=== PATIENT | male | born 1975 | race Caucasian/White ===

== ENCOUNTER 2020-12-05 11:49 | Observation (INO) | payer OTHER ==
[2020-12-05] MEDS ORDERED: SODIUM CHLORIDE 0.9% 500 ML 500 ML IV STA (12:31)
[2020-12-05] MEDS ORDERED: DIAZEPAM 5 MG/ML 2 ML INJ IVP STA (12:33)
[2020-12-05] MEDS ORDERED: MECLIZINE 25 MG TAB PO STA (12:33)
[2020-12-05] MEDS ORDERED: METOPROLOL TARTRATE 5 MG/5 ML VIAL IVP STA ×2 (12:34→14:09)
--- NOTE | 2020-12-05 12:42 | ED ---
General Adult HPI - General Chief complaint: Dizziness Stated complaint: dizziness Time Seen by Provider: 12/05/20 12:00 Source: patient, RN notes reviewed, old records reviewed Mode of arrival: EMS Limitations: no limitations - History of Present Illness Initial comments: This is a 45-year-old male who presents emergency Department complaining that he is having quite a bit of dizziness today. Patient states she woke up and thought originally he was okay but when he went outside the whole room started to spin and he says ever since then everything was spinning so much she feels as though his fall down. Patient states he also became extremely nauseated with the spinning. Patient states this all started about 7 AM this morning. Patient denies any chest pain difficulty breathing shortness of breath. Patient states he does have a history of PVCs in the past. Patient denies any headache. Patient was worried about passing out and he doesn't think he was near syncopal but at the time he wasn't sure. Patient denied any fever chills per patient denies any loss of hearing or change in hearing patient denies any ringing in his ears. Patient denies any swelling to the legs or calf tenderness. - Related Data Allergies Allergy/AdvReac Type Severity Reaction Status Date / Time doxycycline Allergy Unknown Verified 12/05/20 14:42 Review of Systems ROS Statement: Those systems with pertinent positive or pertinent negative responses have been documented in the HPI. ROS Other: All systems not noted in ROS Statement are negative. Past Medical History Past Medical History: Hypertension Additional Past Medical History / Comment(s): MS History of Any Multi-Drug Resistant Organisms: None Reported Past Surgical History: Cholecystectomy Additional Past Surgical History / Comment(s): wisdom teeth Past Psychological History: No Psychological Hx Reported Smoking Status: Current every day smoker Past Alcohol Use History: Occasional Past Drug Use History: None Reported General Exam - General Exam Comments Initial Comments: GENERAL: Patient is well-developed and well-nourished. Patient is nontoxic and well- hydrated and is in distress. ENT: Neck is soft and supple. No significant lymphadenopathy is noted. Oropharynx is clear. Moist mucous membranes. Neck has full range of motion without eliciting any pain. EYES: The sclera were anicteric and conjunctiva were pink and moist. Extraocular movements were intact and pupils were equal round and reactive to light. Eyelids were unremarkable. PULMONARY: Unlabored respirations. Good breath sounds bilaterally. No audible rales rhonchi or wheezing was noted. CARDIOVASCULAR: There is a regular rate and rhythm without any murmurs gallops or rubs. ABDOMEN: Soft and nontender with normal bowel sounds. SKIN: Skin is clear with no lesions or rashes and otherwise unremarkable. NEUROLOGIC: Patient is alert and oriented x3. Cranial nerves II through XII are grossly intact. Motor and sensory are also intact. Normal speech, volume and content. Symmetrical smile. Nose testing was normal bilaterally MUSCULOSKELETAL: Normal extremities with adequate strength and full range of motion. No lower extremity swelling or edema. No calf tenderness. LYMPHATICS: No significant lymphadenopathy is noted PSYCHIATRIC: Normal psychiatric evaluation. Limitations: no limitations Course Vital Signs 12/05/20 12/05/20 12/05/20 11:52 12:29 13:00 Temperature 98.1 F Pulse Rate 70 64 Respiratory 18 18 Rate Blood Pressure 179/94 146/108 113/97 O2 Sat by Pulse 96 96 Oximetry 12/05/20 14:22 Temperature Pulse Rate 68 Respiratory 16 Rate Blood Pressure 147/96 O2 Sat by Pulse 97 Oximetry Medical Decision Making - Medical Decision Making EKG shows sinus rhythm with frequent PVCs at 85 bpm TX interval 280 QRSs 88 QT interval 360 QTC is 437. Patient's EKG shows no ST segment elevation or depression. CT showed a hypoattenuating she in the betty symmetrical. Patient has no old fi lm to compare to. Patient chest x-ray showed no acute abnormality. Patient also was throwing multiple PVCs and had runs of up to 3 and 4 time sometimes multiple runs 3 and 4 in a 10 second time frame. Patient received metoprolol 2 IV for the PVCs and the blood pressure. I spoke with Dr. Vazquez agreed to admit the patient admitted the patient remaining orders. I consult cardiology and neurology - Lab Data Result diagrams: 12/05/20 12:00 12/05/20 12:00 Lab Results 12/05/20 12/05/20 12/05/20 Range/Units 12:00 12:00 12:00 WBC 6.3 (3.8-10.6) k/uL RBC 5.32 (4.30-5.90) m/uL Hgb 17.3 (13.0-17.5) gm/dL Hct 49.4 (39.0-53.0) % MCV 92.9 (80.0-100.0) fL MCH 32.4 (25.0-35.0) pg MCHC 34.9 (31.0-37.0) g/dL RDW 14.1 (11.5-15.5) % Plt Count 203 (150-450) k/uL MPV 7.7 Neutrophils % 69 % Lymphocytes % 16 % Monocytes % 7 % Eosinophils % 4 % Basophils % 1 % Neutrophils # 4.3 (1.3-7.7) k/uL Lymphocytes # 1.0 (1.0-4.8) k/uL Monocytes # 0.4 (0-1.0) k/uL Eosinophils # 0.3 (0-0.7) k/uL Basophils # 0.0 (0-0.2) k/uL Sodium 138 (137-145) mmol/L Potassium 4.2 (3.5-5.1) mmol/L Chloride 103 (98-107) mmol/L Carbon Dioxide 26 (22-30) mmol/L Anion Gap 9 mmol/L BUN 11 (9-20) mg/dL Creatinine 0.92 (0.66-1.25) mg/dL Est GFR (CKD-EPI)AfAm >90 (>60 ml/min/1.73 sqM) Est GFR (CKD-EPI)NonAf >90 (>60 ml/min/1.73 sqM) Glucose 122 H (74-99) mg/dL Calcium 9.4 (8.4-10.2) mg/dL Magnesium 2.1 (1.6-2.3) mg/dL Total Bilirubin 0.6 (0.2-1.3) mg/dL AST 69 H (17-59) U/L ALT 63 H (4-49) U/L Alkaline Phosphatase 74 (38-126) U/L Troponin I <0.012 (0.000-0.034) ng/mL Total Protein 7.1 (6.3-8.2) g/dL Albumin 4.5 (3.5-5.0) g/dL Disposition Clinical Impression: Vertigo, Lesion of betty, Frequent PVCs Disposition: ADMITTED IP TO THIS [facility] Referrals: Nonstaff,Physician [Primary Care Provider] - 1-2 days Time of Disposition: 14:44
--- NOTE | 2020-12-05 12:53 | XR ---
EXAMINATION TYPE: XR chest 2V DATE OF EXAM: 12/05/2020 COMPARISON: NONE HISTORY: Chest pain TECHNIQUE: Frontal and lateral views of the chest are obtained. FINDINGS: There is no focal air space opacity, pleural effusion, or pneumothorax seen. The cardiac silhouette size is within normal limits. Patient is rotated, there are overlying leads. The osseous structures are intact. IMPRESSION: No acute cardiopulmonary process.
[2020-12-05 13:02] LABS: Basophils % (A) 1 %; Eosinophils # (A) 0.3 k/uL (0-0.7); Eosinophils % (A) 4 %; HCT 49.4 % (39.0-53.0); HGB 17.3 gm/dL (13.0-17.5); Lymphocytes % (A) 16 %; MCH 32.4 pg (25.0-35.0); MCHC 34.9 g/dL (31.0-37.0); MCV 92.9 fL (80.0-100.0); Mean Platelet Volume 7.7; Monocytes # (A) 0.4 k/uL (0-1.0); Monocytes % (A) 7 %; Neutrophils # (A) 4.3 k/uL (1.3-7.7); Neutrophils % (A) 69 %; Platelet Count 203 k/uL (150-450); RBC 5.32 m/uL (4.30-5.90); RDW 14.1 % (11.5-15.5); WBC 6.3 k/uL (3.8-10.6)
--- NOTE | 2020-12-05 13:06 | CT ---
EXAMINATION TYPE: CT brain wo con DATE OF EXAM: 12/05/2020 COMPARISON: None HISTORY: dizziness CT DLP: 1143.4 mGycm. Automated Exposure Control for Dose Reduction was Utilized. TECHNIQUE: CT scan of the head is performed without contrast. FINDINGS: There is no acute intracranial hemorrhage, mass effect, or midline shift identified. The ventricles and sulci are within normal limits in size. There is some focal low attenuation present w ithin the betty, axial image #15 noted within the midline. The globes are intact and the visualized si nuses are remarkable for minimal inflammatory change maxillary sinus on the right. 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 IMPRESSION: Indeterminate focus of hypoattenuation within the midline in the betty. MRI is recommended .
[2020-12-05 13:14] LABS: ALT 63 U/L (4-49); AST 69 U/L (17-59); African American GFR (CKD) >90 (>60 ml/min/1.73 sqM); Albumin 4.5 g/dL (3.5-5.0); Alkaline Phosphatase 74 U/L (38-126); Anion Gap 9 mmol/L; Blood Urea Nitrogen 11 mg/dL (9-20); Calcium 9.4 mg/dL (8.4-10.2); Carbon Dioxide 26 mmol/L (22-30); Chloride 103 mmol/L (98-107); Glucose 122 mg/dL (74-99); Magnesium 2.1 mg/dL (1.6-2.3); Non-African American GFR(CKD) >90 (>60 ml/min/1.73 sqM); Potassium 4.2 mmol/L (3.5-5.1); Sodium 138 mmol/L (137-145); Total Bilirubin 0.6 mg/dL (0.2-1.3); Total Protein 7.1 g/dL (6.3-8.2)
[2020-12-05] MEDS ORDERED: SODIUM CHLORIDE 0.9% 1,000 ML IV ONE (14:45)
--- NOTE | 2020-12-05 16:23 | P.CNNES ---
History of Present Illness Consult date: 12/05/20 Requesting physician: Gianluca Galloway Reason for Consult: lesion betty, vertigo History of Present Illness: This is a 45-year-old gentleman with medical history of relapsing remitting multiple sclerosis since 2018, hypertension who presented to the emergency department on 12/05/2020 for the severe dizziness. He is accompanied with his was at bedside. The patient stated that the he woke up around 6ish in the morning and was doing well then around 7:00 he noticed that there he was very dizzy and he felt like the room was spinning. He had nausea. He said that he was having double vision and it was side to side but he cannot tell me if was the right eye left eye he thinks his both eyes. He said when he sat down he felt the dizziness got better but when he was moving dizziness got really bad ear. He denies any vomiting. Patient denies any ringing in the ears, hearing loss. He said initially when he was HIS there is a slight lag in getting his words out but otherwise denies any focal weakness that's new or numbness or difficulty swallowing. Denies any fever. He said that currently he feels much better compared to his initial presentation and his agrees with that. He said he is around this area for leisure. Patient follows up with a neurologist in [place] when he lives (Dr. Toya hicks) and is getting IV infusion of Ocrevus every 6 months and last one was in Mar 2021 and was due in October for next one but pending insurance authorization. Regarding his MS he was never started on any other medication besides Ocrevus. He has minimal to mild right paresthesia of the right lower extremity from right thigh down and right leg weakness from MS and gets outpatient therapy. Patient's home medication consists of vitamin D3, pseudoephedrine, potassium, vitamin D, CoQ10, Cialis, loratadine, Lexapro, potassium, Ocrevus inusion Some of the workup in the hospital consisted of: Initial vital signs: Blood pressure of 179/94, heart rate of 70, respiratory of 18, temperature of 98.1 Fahrenheit oral and pulse ox of 96% room air. CBC with differential is within normal limits. Chemistry panel is apparent positive his AST of 69 and ALT of 63 which is mildly elevated. We'll close is 122 which is slightly elevated but unremarkable. Otherwise the rest of the chemistry panel is unremarkable. Calcium is 9.4, magnesium is 2.1 which is within normal limits. CT of the head is reported as a different focus of hypoattenuation within the midline in the betty. MRI is recommended. EKG is reported as sinus rhythm with frequent and the consecutive premature ventricular comp looks his appeared abnormal EKG. Review of Systems Review of system: The 12 point system was reviewed and apparent positive and negative per HPI. Past Medical History Past Medical History: Hypertension Additional Past Medical History / Comment(s): MS History of Any Multi-Drug Resistant Organisms: None Reported Past Surgical History: Cholecystectomy Additional Past Surgical History / Comment(s): wisdom teeth Past Psychological History: No Psychological Hx Reported Smoking Status: Current every day smoker Past Alcohol Use History: Occasional Past Drug Use History: None Reported Medications and Allergies Home Medications Medication Instructions Recorded Confirmed Type Ascorbic Acid [Vitamin C] 1,000 mg PO DAILY 12/05/20 12/05/20 History Cholecalciferol [Vitamin D3 (25 50 mcg PO DAILY 12/05/20 12/05/20 History Mcg = 1000 Iu)] Escitalopram [Lexapro] 10 mg PO DAILY 12/05/20 12/05/20 History Loratadine 10 mg PO DAILY 12/05/20 12/05/20 History Losartan/Hydrochlorothiazide 1 tab PO DAILY 12/05/20 12/05/20 History [Losartan-Hctz 100-12.5 mg Tab] Ocrevus Infusion(Unknown Dose) 1 dose IV Q180D 12/05/20 12/05/20 History Potassium Gluconate 99 mg PO DAILY 12/05/20 12/05/20 History Pseudoephedrine [Sudafed] 30 mg PO Q4-6H PRN 12/05/20 12/05/20 History Tadalafil [Cialis] 5 mg PO DAILY 12/05/20 12/05/20 History Ubidecarenone [Co Q-10] 100 mg PO DAILY 12/05/20 12/05/20 History Vitamin B Complex 1 cap PO DAILY 12/05/20 12/05/20 History Allergies Allergy/AdvReac Type Severity Reaction Status Date / Time doxycycline Allergy Unknown Verified 12/05/20 14:42 Physical Examination - Vital Signs Vital Signs: Vital Signs Temp Pulse Resp BP Pulse Ox 12/05/20 14:22 68 16 147/96 97 12/05/20 13:00 113/97 12/05/20 12:29 64 18 146/108 96 12/05/20 11:52 98.1 F 70 18 179/94 96 Intake and Output 12/05/20 12/05/20 12/05/20 06:59 14:59 22:59 Other: Weight 106.594 kg GENERAL: The patient is obese gentleman sitting up at side of bed in bed and is not in acute distress. CHEST: The heart rate is regular rate rhythm. No murmurs to auscultation. No carotid bruit bilaterally. LUNG: Clear to auscultation bilaterally no wheezing noted throughout. Not labored breathing. ABDOMEN/GI: Bowel sounds present in all 4 quadrants. No tenderness to palpation throughout. NEUROLOGICAL: Higher mental function: The patient is awake, alert, oriented to self, place and time. Patient is following commands. No aphasia and no neglect. Cranial nerves: The pupils are round, equal and reactive to light and accommodation. Visual eisenberg are full to confrontation throughout. Extraocular movement is intact and mild rotatory nystagmus noted looking to left. Facial sensation is normal to touch throughout. The facial strength is normal throughout. Hearing is normal bilaterally to hand rub. Tongue is midline and moved tywe-by-zylp without any difficulty. No dysarthria is noted. Shoulder shrug is normal bilaterally. Motor: Gait is normal with normal arm swings. The strength is 5 over 5 throughout. Normal tone and bulk. Cerebellum: Normal finger to nose heel to sharp bilaterally. Sensation: Sensation is normal to touch throughout. Reflexes (right/left): 2+ throughout except patellar 3+ bilaterally.. Plantars are downgoing bilaterally. Results - Laboratory Findings CBC and BMP: 12/05/20 12:00 12/05/20 12:00 Abnormal Lab Findings: Abnormal Labs 12/05/20 12:00 Glucose 122 H AST 69 H ALT 63 H Assessment and Plan Assessment: * Vertigo, diplopia (side to side), and difficulty getting his words out---symptoms are improving. Seems possibly acute ischemic stroke. Another possibility is his vertigo seems peripheral (where it is positional) and currently his symptoms are improving. * History of relapsing-remitting multiple sclerosis since 2018. * Hypertension Plan: I ordered a stat CT angiography of the head and neck as well as stat MRI of the brain (w/o gadollinum since he will be getting too much contrast today and if needed will get contrast another day). Patient was given Valium, meclizine in the ED. I will start the patient on ASA 81mg daily and Lipitor 80mg qhs for secondary stroke prophylaxis if MRI is suggestive of stroke. I will also get rest of stroke work-up if he does have stroke seen on MRI (2D echo, lipid panel, TSH and HbA1c). Placed on continuous cardiac monitoring Q4 hours Neuro checks and placed on continous cardiac monitoring. I consulted that PT OT and [employer]. Cardiology is consulted for PVC. Upon discharge the patient needs to follow-up with his neurologist as outpatient within 1-2 weeks. Thank you for the consultation. UPDATE: MR the brain is reported as no evidence of acute infarct. Scattered white mat ter high signal foci as above could relate to demyelinating disease or microvascular ischemia. Zach Matthews M.D. Neuro-hospitalist Time with Patient: Greater than 30
[2020-12-05] MEDS ORDERED: PSEUDOEPHEDRINE 30 MG TAB PO PRN (18:21)
--- NOTE | 2020-12-05 18:56 | MR ---
EXAMINATION TYPE: MR brain wo con DATE OF EXAM: 12/05/2020 COMPARISON: None HISTORY: stroke/ dizziness/ r/o peripheral stroke Multiplanar multiecho imaging of the brain without contrast. Diffusion images show no evidence of an acute infarct. The ventricles have normal size. There is no m ass effect nor midline shift. There is no sign of intracranial hemorrhage. The brainstem is intact. T here is no evidence of posterior fossa mass. There are some foci of increased signal on the T2 and FL AIR images in the white matter in the right posterior temporal lobe and the left temporal and parieta l lobe. Total number of lesions is approximately 15. Most of these are 4 mm or smaller. The largest i s adjacent to the temporal horn of the right lateral ventricle and measures 7 mm. Corpus callosum appears intact. The sella turcica is intact. There is no evidence of orbital mass. Th ere is mild mucosal thickening in the ethmoid air cells. IMPRESSION: No evidence of an acute infarct. Scattered white matter high signal foci as above could relate to demyelinating disease or microvascul ar ischemia.
--- NOTE | 2020-12-05 20:04 | CT ---
EXAMINATION TYPE: CT angio head neck DATE OF EXAM: 12/05/2020 COMPARISON: None HISTORY: DIZZINESS CT DLP: 505.80 mGycm Automated exposure control for dose reduction was used. CONTRAST: Performed with IV Contrast, patient injected with 65 mL of Isovue 370. Images obtained from the aortic arch to the vertex of the brain with IV contrast. There are 3-D post processed images. There is arterial flow in the subclavian arteries bilaterally. There is arterial flow in the common i nternal and external carotid arteries bilaterally. There is wide patency of the carotid artery bifurc ations. There is arterial flow in both vertebral arteries. There is arterial flow in the vertebrobasi lar artery system. There is no evidence of carotid or vertebral artery aneurysm or dissection. There is normal branching pattern of the great vessels on the aortic arch. There is arterial flow in the anterior middle and posterior cerebral arteries. I see no evidence of i ntracranial aneurysm or neovascularity. There is no evidence of any significant arterial stenosis. Th ere is no mass effect. There is normal enhancement of the venous sinuses. IMPRESSION: Negative CT angiogram of the neck. Negative CT angiogram of the brain.
--- NOTE | 2020-12-06 00:22 | HP ---
HISTORY AND PHYSICAL 45-year-old white male with MS since 2018, hypertension, came in with severe dizziness with blurred vision, double vision, suspicious for possible MS flare. He has missed his regular MS infusion. Two months late after he was supposed to get infusion, he thought the room was possibly spinning. Says this got better. He denies any vomiting and ringing in his ears, hearing loss. 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 Follows with a neurologist in [place]. IV Ocrevus every 6 months. MEDICATIONS: Home medicines include pseudoephedrine, vitamin D3, potassium, ( ) Cialis, Lexapro, potassium, Ocrevus. PHYSICAL EXAMINATION: Blood pressure is 179/94, heart rate 70, respiratory 16-18, temperature 98.1, O2 96, room air. CARDIOVASCULAR: S1,S2. LUNGS: Clear. GI: Soft. HEMATOLOGY: Negative Homans. PSYCH: Fair mood and affect. LABS: Magnesium is 2.1, calcium 9.4. CT head, abnormality of the betty. MRI shows possibly multiple white lesions for an MS flare. PAST MEDICAL HISTORY: Hypertension, MS. SOCIAL HISTORY: Current everyday smoker. ALLERGIES: DOXYCYCLINE. PHYSICAL EXAM: Pulse 60s to 70s, respiratory 16 to 18, blood pressure is 113 to 170s over 90s to 100. Pulse ox 96-98%., Temp 98.1. LABS: White count 6.3, hemoglobin 17.3, BUN 11, creatinine 0.92, sodium 138, potassium 4.2. ASSESSMENT: Vertigo, diplopia, most likely acute MS flare, possibly acute ischemic stroke. MRI of the brain is reviewed. Wait for Neurology to start possible steroids for MS. Rehydrate. Prognosis is guarded. MMODL / IJN: [id number] /
[2020-12-06] MEDS: CHOLECALCIFEROL 25 MCG (1000 IU) TABLET PO SCH (08:51)
[2020-12-06] MEDS: ESCITALOPRAM 10 MG TAB PO SCH (08:52)
[2020-12-06] MEDS: ASCORBIC ACID 500 MG TAB PO SCH (08:52)
[2020-12-06] MEDS: LOSARTAN 50 MG TAB PO SCH (08:52)
[2020-12-06] MEDS: LORATADINE 10 MG TAB PO SCH (08:52)
[2020-12-06] MEDS: NON FORMULARY DRUG (Ubidecarenone [Co Q-10] 100 MG Capsule) PO SCH (08:54)
[2020-12-06] MEDS: NON FORMULARY DRUG (Vitamin B Complex [Vitamin B Complex] 1 EACH Capsule) PO SCH (08:54)
[2020-12-06] MEDS ORDERED: hydroCHLOROthiazide 12.5 MG CAP PO SCH (09:00)
[2020-12-06] MEDS ORDERED: MECLIZINE 25 MG TAB PO PRN (09:19)
[2020-12-06] MEDS ORDERED: DIAZEPAM 5 MG/ML 2 ML INJ IVP STA (09:24)
--- NOTE | 2020-12-06 11:07 | P.CRDCN ---
History of Present Illness Consult date: 12/06/20 History of present illness: HISTORY OF PRESENT ILLNESS: This is a 45-year-old male with a past medical history significant for multiple sclerosis, hypertension, PVCs, and nicotine dependence. Patient does not follow with a entry level accounting clerk. We have been asked to see the patient in consultation for PVCs. Patient examined at the bedside. Patient states he woke up yesterday morning and walked outside and was talking to his neighbor while drinking a cup of coffee when he started to have double vision. He reports he began to feel dizzy and lightheaded. He felt like everything was spinning around him. He also describes the feeling as he felt like he was riding a wave. He states he sat down and his symptoms did not resolve so he came to the ER for further evaluation. Patient states his double vision has resolved. However he continues to feel dizzy and lightheaded. Patient states he has a known history of PVCs. He states his primary care physician told him this a few years ago. He states he has had an EKG completed in the past but no other further cardiac workup. Patient does report daily nicotine use. He states he smokes 3 cigar ettes a day. He also reports alcohol use 2 times a month with 6 beers on each occasion. EKG reveals sinus mechanism with couplets Chest xray no acute cardiopulmonary process. CT brain: Indeterminate focus of hypoattenuation within the midline in the betty. MRI is recommended. MRI of the brain: No evidence of acute infarct. Scattered white matter high signal foci as above currently to demyelinating disease or microvascular ischemia. Laboratory data: WBC 6.3. Hemoglobin 17.3. Platelet count 203. Sodium 138. Potassium 4.2. BUN 11. Creatinine 0.92. AST 69. ALT 63. Troponin negative 1. Current home cardiac medications include losartan-hydrochlorothiazide 100-12.5 milligrams daily REVIEW OF SYSTEMS: At the time of my exam: CONSTITUTIONAL: Denies fever or chills. HEENT: Denies blurred vision, vision changes, or eye pain. Denies hemoptysis CARDIOVASCULAR: Denies chest pain. Denies orthopnea. Denies PND. Denies palpitations RESPIRATORY: Denies shortness of breath. GASTROINTESTINAL: Denies abdominal pain. Denies nausea or vomiting. HEMATOLOGIC: Denies bleeding disorders. GENITOURINARY: Denies any blood in urine. SKIN: Denies pruitis. Denies rash. PHYSICAL EXAM: VITAL SIGNS: Reviewed. GENERAL: Well-developed in no acute distress. HEENT: Head is normocephalic. Pupils are equal, round. Sclerae anicteric. Mucous membranes of the mouth are moist. Neck supple. No JVD or thyromegaly LUNGS: Respirations even and unlabored. Lungs essentially clear to auscultation bilaterally. HEART: Regular rate and rhythm. S1 and S2 heard. ABDOMEN: Soft. Nondistended. Nontender. EXTREMITIES: Normal range of motion. No clubbing or cyanosis. Peripheral pulses intact. No lower extremity edema NEUROLOGIC: Reports dizziness. Awake and alert. Oriented x 3. ASSESSMENT: Known history of PVCs Multiple sclerosis Dizziness and lightheadedness Vertigo Hypertension Nicotine dependence PLAN: Obtain 2-D echo to assess cardiac structure and function Continue telemetry monitoring Patient may follow up on an outpatient basis. Recommend event monitor post discharge. Resume home cardiac medications Nurse practitioner note has been reviewed by physician. Signing provider agrees with the documented findings, assessment, and plan of care. Past Medical History Past Medical History: Hypertension Additional Past Medical History / Comment(s): MS History of Any Multi-Drug Resistant Organisms: None Reported Past Surgical History: Cholecystectomy Additional Past Surgical History / Comment(s): wisdom teeth Past Anesthesia/Blood Transfusion Reactions: No Reported Reaction Past Psychological History: No Psychological Hx Reported Smoking Status: Current every day smoker Past Alcohol Use History: Occasional Past Drug Use History: None Reported - Past Family History Father Family Medical History: Diabetes Mellitus, Hypertension Additional Family Medical History / Comment(s): melanoma Mother Family Medical History: Cancer, Hypertension Additional Family Medical History / Comment(s): kidney cancer Medications and Allergies Home Medications Medication Instructions Recorded Confirmed Type Ascorbic Acid [Vitamin C] 1,000 mg PO DAILY 12/05/20 12/05/20 History Cholecalciferol [Vitamin D3 (25 50 mcg PO DAILY 12/05/20 12/05/20 History Mcg = 1000 Iu)] Escitalopram [Lexapro] 10 mg PO DAILY 12/05/20 12/05/20 History Loratadine 10 mg PO DAILY 12/05/20 12/05/20 History Losartan/Hydrochlorothiazide 1 tab PO DAILY 12/05/20 12/05/20 History [Losartan-Hctz 100-12.5 mg Tab] Ocrevus Infusion(Unknown Dose) 1 dose IV Q180D 12/05/20 12/05/20 History Potassium Gluconate 99 mg PO DAILY 12/05/20 12/05/20 History Pseudoephedrine [Sudafed] 30 mg PO Q4-6H PRN 12/05/20 12/05/20 History Tadalafil [Cialis] 5 mg PO DAILY 12/05/20 12/05/20 History Ubidecarenone [Co Q-10] 100 mg PO DAILY 12/05/20 12/05/20 History Vitamin B Complex 1 cap PO DAILY 12/05/20 12/05/20 History Allergies Allergy/AdvReac Type Severity Reaction Status Date / Time doxycycline Allergy Unknown Verified 12/05/20 14:42 Physical Exam Vitals: Vital Signs Temp Pulse Pulse Resp BP BP Pulse Ox 12/06/20 04:10 57 L 18 133/84 99 12/06/20 02:15 17 12/05/20 23:20 97.6 F 71 17 131/82 99 12/05/20 20:00 97.4 F L 57 L 19 132/88 98 12/05/20 18:50 97.9 F 67 20 142/88 98 12/05/20 17:00 70 21 143/87 95 12/05/20 16:30 86 21 136/104 95 12/05/20 16:00 77 20 149/97 12/05/20 15:30 71 21 155/110 96 12/05/20 15:00 86 20 139/108 97 12/05/20 14:30 75 16 147/96 96 12/05/20 14:22 68 16 147/96 97 12/05/20 14:00 68 22 146/101 94 L 12/05/20 13:30 72 18 142/100 94 L 12/05/20 13:00 86 18 113/97 95 12/05/20 12:30 71 19 146/108 12/05/20 12:29 64 18 146/108 96 12/05/20 12:15 85 14 12/05/20 11:52 98.1 F 70 18 179/94 96 Intake and Output 12/05/20 12/06/20 12/06/20 22:59 06:59 14:59 Intake Total 200 Balance 200 Intake: Oral 200 Other: Voiding Method Toilet Toilet # Voids 3 Weight 106.594 kg Results 12/05/20 12:00 12/05/20 12:00 Cardiac Enzymes 12/05/20 12/05/20 Range/Units 12:00 12:00 AST 69 H (17-59) U/L Troponin I <0.012 (0.000-0.034) ng/mL CBC 12/05/20 Range/Units 12:00 WBC 6.3 (3.8-10.6) k/uL RBC 5.32 (4.30-5.90) m/uL Hgb 17.3 (13.0-17.5) gm/dL Hct 49.4 (39.0-53.0) % Plt Count 203 (150-450) k/uL Comprehensive Metabolic Panel 12/05/20 Range/Units 12:00 Sodium 138 (137-145) mmol/L Potassium 4.2 (3.5-5.1) mmol/L Chloride 103 (98-107) mmol/L Carbon Dioxide 26 (22-30) mmol/L BUN 11 (9-20) mg/dL Creatinine 0.92 (0.66-1.25) mg/dL Glucose 122 H (74-99) mg/dL Calcium 9.4 (8.4-10.2) mg/dL AST 69 H (17-59) U/L ALT 63 H (4-49) U/L Alkaline Phosphatase 74 (38-126) U/L Total Protein 7.1 (6.3-8.2) g/dL Albumin 4.5 (3.5-5.0) g/dL Current Medications Generic Name Dose Route Start Last Admin Trade Name Freq PRN Reason Stop Dose Admin Ascorbic Acid 1,000 mg 12/06/20 09:00 Ascorbic Acid 500 Mg Tab PO DAILY [facility]LES Cholecalciferol 50 mcg 12/06/20 09:00 Cholecalciferol 25 Mcg (1000 Iu) Tablet PO DAILY [facility] Escitalopram Oxalate 10 mg 12/06/20 09:00 Escitalopram 10 Mg Tab PO DAILY [facility] Loratadine 10 mg 12/06/20 09:00 Loratadine 10 Mg Tab PO DAILY [facility] Losartan Potassium 100 mg 12/06/20 09:00 Losartan 50 Mg Tab PO DAILY [facility]LES Non-Formulary Medication 100 mg 12/06/20 09:00 Ubidecarenone [Co Q-10] PO DAILY [facility] Non-Formulary Medication 1 cap 12/06/20 09:00 Vitamin B Complex [Vitamin B Complex] PO DAILY [facility] Pseudoephedrine HCl 30 mg 12/05/20 18:21 Pseudoephedrine 30 Mg Tab PO Q4H PRN Congestion Intake and Output 12/05/20 12/06/20 12/06/20 22:59 06:59 14:59 Intake Total 200 Balance 200 Intake: Oral 200 Other: Voiding Method Toilet Toilet # Voids 3 Weight 106.594 kg 12/05/20 12:00 12/05/20 12:00
--- NOTE | 2020-12-06 11:37 | P.PN ---
Subjective Progress Note Date: 12/06/20 Patient seen at bedside and that he he is having recurrence of his dizziness today in the morning. He feels dizziness is mostly well while he's sitting up. He feels nauseous but denies any vomiting. Denies any focal weakness numbness, visual disturbance, difficulty getting his words out or swallowing. Objective - Vital Signs Vital signs: Vital Signs Temp 97.9 F 12/06/20 08:00 Pulse 66 12/06/20 08:00 Resp 17 12/06/20 08:00 BP 150/90 12/06/20 08:00 Pulse Ox 99 12/06/20 04:10 Intake & Output 12/05/20 12/06/20 12/06/20 18:59 06:59 18:59 Intake Total 200 0 Balance 200 0 Weight 106.594 kg Intake: Oral 200 0 Other: Voiding Method Toilet # Voids 3 - Exam GENERAL: The patient is obese gentleman sitting up at side of bed in bed and is not in acute distress. NEUROLOGICAL: Higher mental function: The patient is awake, alert, oriented to self, place and time. Patient is following commands. No aphasia and no neglect. Cranial nerves: The pupils are round, equal and reactive to light and accommodation. Visual eisenberg are full to confrontation throughout. Extraocular movement is intact and rotatory/horizontal nystagmus at left side of both eyes (more noticeable today compared to yesterday). Facial sensation is normal to touch throughout. The facial strength is normal throughout. Hearing is normal bilaterally to hand rub. Tongue is midline and moved [id number] without any difficulty. No dysarthria is noted. Shoulder shrug is normal bilaterally. Motor: Gait is not assessed. The strength is 5 over 5 throughout. Normal tone and bulk. Cerebellum: Normal finger to nose heel to sharp bilaterally. Sensation: Sensation is normal to touch throughout. Reflexes (right/left): 2+ throughout except patellar 3+ bilaterally.. Plantars are downgoing bilaterally. WORK-UP: MR the brain is reported as no evidence of acute infarct. Scattered white matter high signal foci as above could relate to D monitoring disease or microvascular ischemia. CT angiography of the head is reported as negative for both. - Labs CBC & Chem 7: 12/05/20 12:00 12/05/20 12:00 Labs: Abnormal Lab Results - Last 24 Hours (Table) 12/05/20 Range/Units 12:00 Glucose 122 H (74-99) mg/dL AST 69 H (17-59) U/L ALT 63 H (4-49) U/L Assessment and Plan Assessment: * Vertigo seems peripheral (MRI is negative for acute/subacute ischemic stroke). * History of relapsing-remitting multiple sclerosis since 2018. * Hypertension Plan: Prescribed [id number] once and meclizine 25mg 1 tab tid. We'll give patient patient information about Eplepy maneuver. Consulted PT and OT. Continue Q4 hours neuro checks. Cardiology ordered 2D echo She was notified if he continues to have dizziness then recommend for the patient to be seen by ENT as an outpatient and consider vestibular rehab. Upon discharge the patient needs to follow-up with his neurologist as outpatient within 1-2 weeks. Patient was notified if he continues to have a drastic improvement by later afternoon and decides to leave then he is clear from my side. The plan is discussed with the patient's nurse. Zach Matthews M.D. Neuro-hospitalist Time with Patient: Less than 30
[2020-12-06] MEDS: MECLIZINE 25 MG TAB PO SCH ×2 (15:30→20:22)
[2020-12-06] MEDS: ACETAMINOPHEN TAB 325 MG TAB PO PRN (15:46)
[2020-12-06 16:19] LABS: African American GFR (CKD) >90 (>60 ml/min/1.73 sqM); Anion Gap 6 mmol/L; Blood Urea Nitrogen 12 mg/dL (9-20); Calcium 9.2 mg/dL (8.4-10.2); Carbon Dioxide 30 mmol/L (22-30); Chloride 104 mmol/L (98-107); Glucose 108 mg/dL (74-99); Magnesium 2.1 mg/dL (1.6-2.3); Non-African American GFR(CKD) >90 (>60 ml/min/1.73 sqM); Potassium 4.1 mmol/L (3.5-5.1); Sodium 140 mmol/L (137-145)
--- NOTE | 2020-12-06 18:06 | ECHOF ---
Referral Reason:LV function, PVCs MEASUREMENTS -------- HEIGHT: 182.9 cm WEIGHT: 106.6 kg BP: IVSd: 1.4 cm (0.6 - 1.1) LVIDd: 5.1 cm (3.9 - 5.3) LVPWd: 1.5 cm (0.6 - 1.1) IVSs: 1.8 cm LVIDs: 3.8 cm LVPWs: 1.7 cm LAESV Index (A-L): 34.07 ml/m Ao Diam: 3.3 cm (2.0 - 3.7) AV Cusp: 2.3 cm (1.5 - 2.6) MV EXCURSION: 20.824 mm (> 18.000) MV EF SLOPE: 85 mm/s (70 - 150) EPSS: 0.9 cm MV E Lc: 0.35 m/s MV DecT: 315 ms MV A Lc: 0.75 m/s MV E/A Ratio: 0.46 RAP: 5.00 mmHg RVSP: 18.23 mmHg FINDINGS -------- Undetermined rhythm. This was a technically good study. The left ventricular size is normal. There is moderate concentric left ventricular hypertrophy. O verall left ventricular systolic function is normal with, an EF between 55 - 60 %. The right ventricle is normal in size. LA is moderately dilated 34-39 ml/m2 The right atrial size is normal. Mild mitral regurgitation is present. Mild tricuspid regurgitation present. Right ventricular systolic pressure is normal at < 35 mmHg. There is no pulmonic regurgitation present. There is no pericardial effusion. CONCLUSIONS -------- 1. The left ventricular size is normal. 2. There is moderate concentric left ventricular hypertrophy. 3. Overall left ventricular systolic function is normal with, an EF between 55 - 60 %. 4. The right ventricle is normal in size. 5. LA is moderately dilated 34-39 ml/m2 6. The right atrial size is normal. 7. Mild mitral regurgitation is present. 8. Mild tricuspid regurgitation present. 9. There is no pericardial effusion. TERMINAL MAKE UP OPERATOR: Jocelynn Messina RDCS
--- NOTE | 2020-12-07 00:32 | PN ---
PROGRESS NOTE DATE OF SERVICE: 12/06/2020 45-year-old white male who has been started on Antivert and Valium for vertigo. The patient still ( ) with Apley maneuvers been discussed with him. Still remains on Antivert. Possible discharge home tomorrow. PHYSICAL EXAM: CARDIOVASCULAR: S1, S2. LUNGS: Clear. HEMATOLOGY: Negative Homans. PSYCH: Fair mood and affect. GI: Soft. ASSESSMENT: Vertigo, peripheral dizziness, probably MS. There are no acute lesions on MRI of the brain. He is up ambulating. 1. Peripheral vestibular disturbance. 2. History of MS. 3. Hypertension. Continue with current treatments from home. Antivert will be given with Valium. Discharge home in the morning, if he is much improved. Slowly improving with the Antivert. MMODL / IJN: [id number] /
[2020-12-07 07:41] VITALS: PULSE 70
[2020-12-07] MEDS ORDERED: DIAZEPAM 5 MG/ML 2 ML INJ IVP PRN (09:21)
[2020-12-07] MEDS: ASCORBIC ACID 500 MG TAB PO SCH (09:22)
[2020-12-07] MEDS: CHOLECALCIFEROL 25 MCG (1000 IU) TABLET PO SCH (09:22)
[2020-12-07] MEDS: MECLIZINE 25 MG TAB PO SCH (09:23)
[2020-12-07] MEDS: ESCITALOPRAM 10 MG TAB PO SCH (09:23)
[2020-12-07] MEDS: LOSARTAN 50 MG TAB PO SCH (09:23)
[2020-12-07] MEDS: LORATADINE 10 MG TAB PO SCH (09:23)
[2020-12-07] MEDS: NON FORMULARY DRUG (Ubidecarenone [Co Q-10] 100 MG Capsule) PO SCH (09:25)
[2020-12-07] MEDS: NON FORMULARY DRUG (Vitamin B Complex [Vitamin B Complex] 1 EACH Capsule) PO SCH (09:26)
[2020-12-07] MEDS: ACETAMINOPHEN TAB 325 MG TAB PO PRN (13:10)
[2020-12-07] MEDS ORDERED: MECLIZINE 25 MG TAB PO SCH (14:00)
--- NOTE | 2020-12-07 14:02 | P.PN ---
Subjective Progress Note Date: 12/07/20 The patient continues to feel dizzy especially in the morning and the daytime but during the late at night that yesterday he felt much better but today he feels again dizzy. He denies off any nausea or vomiting. Denies of any focal weakness, denies of any visual disturbance, denies of any difficulty getting his words out. Denies off any difficulty swallowing. Objective - Vital Signs Vital signs: Vital Signs Temp 97.7 F 12/07/20 12:00 Pulse 70 12/07/20 07:40 Resp 17 12/07/20 12:00 BP 137/87 12/07/20 12:00 Pulse Ox 100 12/07/20 12:00 Intake & Output 12/06/20 12/07/20 12/07/20 18:59 06:59 18:59 Intake Total 640 120 Balance 640 120 Weight 112 kg Intake: Oral 640 120 Other: Voiding Method Toilet Toilet Toilet # Voids 2 3 1 - Exam GENERAL: The patient is obese gentleman sitting up at side of bed in bed and is not in acute distress. NEUROLOGICAL: Higher mental function: The patient is awake, alert, oriented to self, place and time. Patient is following commands. No aphasia and no neglect. Cranial nerves: The pupils are round, equal and reactive to light and accommodation. Visual eisenberg are full to confrontation throughout. Extraocular movement is intact and rotatory/horizontal nystagmus looing to left, up and down. Facial sensation is normal to touch throughout. The facial strength is normal throughout. Hearing is normal bilaterally to hand rub. Tongue is midline and moved [id number] without any difficulty. No dysarthria is noted. Shoulder shrug is normal bilaterally. Motor: Gait is not assessed. The strength is 5 over 5 throughout. Normal tone and bulk. Cerebellum: Normal finger to nose heel to sharp bilaterally. Sensation: Sensation is normal to touch throughout. Reflexes (right/left): 2+ throughout except patellar 3+ bilaterally.. Plantars are downgoing bilaterally. WORK-UP: MR the brain is reported as no evidence of acute infarct. Scattered white matter high signal foci as above could relate to D monitoring disease or microvascular ischemia. CT angiography of the head is reported as negative for both. 2-D echo was reported as moderate concentric left ventricle atrophy. Ejection fraction of 55-60%. Left atrium is moderately dilated that. - Labs CBC & Chem 7: 12/05/20 12:00 12/06/20 15:43 Labs: Abnormal Lab Results - Last 24 Hours (Table) 12/06/20 Range/Units 15:43 Glucose 108 H (74-99) mg/dL Assessment and Plan Assessment: * Vertigo seems peripheral (MRI is negative for acute/subacute ischemic stroke). Rule out any stroke not picked up on initial MRI. * History of relapsing-remitting multiple sclerosis since 2018. * Hypertension Plan: * I ordered a repeat MRI of the brain but this time will do with aide and MS scan to assess whether the patient has a lesion that that was not seen on the initial MRI. * Ordered Valium 4mg every 4 hours PRN. Increased Meclizine 25mg 1 tab tid to 50mg 1 tab bid maintenance. * Gave patient patient information about Eplepy maneuver and has tried it. * Primary team is concerned about MS exacerbation since the patient missed his Ocrevus IV infusion. I notified the patient that I cannot start the patient on IV steroids but he stated that he wants to wait until we get the repeated MRI. * Consulted PT and OT. * Continue Q4 hours neuro checks. * Cardiology are on board. * He was notified if he continues to have dizziness then recommend for the patient to be seen by ENT as an outpatient and consider vestibular rehab. * Upon discharge the patient needs to follow-up with his neurologist as outpatient within 1-2 weeks. The plan is discussed with the patient's nurse and his primary team. Will continue to follow. UPDATE: MRI Brain w/: It is reported as finding consistent with multiple sclerosis. No evidence of subacute posterior circulation infarct. In the body of the report it is mentioned that there is no any enhancement. I attempted to contact the reading radiologist but no response therefore I contacted Dr. Hardin (reading radiologist) and he placed an addendum stating that the contrast images shows no pathological enhancement of the white matter to suggest an acute focus of the mind disease. White matter lesion are consistent with a chronic disease. I explained finding to the patient and his . I notified them that the patie nt does not have any acute stroke with subacute stroke neither dizzy and have any new lesions on the MRI regarding his MS. I do not think his dizziness is related to his MS. Patient was notified that we can prophylactically start him on IV steroids for his MS especially since he missed his IV infusion. He declined and he stated that he would like to go home and he'll follow-up with an ENT. He was notified his symptoms get really as severe to come back to that emergency. Zach Matthews M.D. Neuro-hospitalist Time with Patient: Greater than 30
--- NOTE | 2020-12-07 14:37 | P.PN ---
Subjective This is a 45-year-old male with a past medical history significant for multiple sclerosis, hypertension, PVCs, and nicotine dependence. Patient does not follow with a pc maintenance technician. We have been asked to see the patient in consultation for PVCs. He was admitted with complaints of dizziness and lightheadedness. Patient states he has a known history of PVCs. EKG revealed sinus mechanism with couplets. Chest xray no acute cardiopulmonary process. CT brain: Indeterminate focus of hypoattenuation within the midline in the betty. MRI is recommended. MRI of the brain: No evidence of acute infarct. Scattered white matter high signal foci as above currently to demyelinating disease or microvascular ischemia. Echocardiogram revealed an EF 55-60%, amylase mildly dilated, mild mitral regurgitation, mild tricuspid patient. Patient seen and examined at bedside this morning, continues of lightheadedness and dizziness. He states that it is worse when he moves his head back and forth or side to side. Denies any chest pain, shortness of breath. Telemetry reviewed patient in sinus mechanism heart rate 50 to 60s, occasional PVCs PHYSICAL EXAM: VITAL SIGNS: Reviewed. GENERAL: Well-developed in no acute distress. HEENT: Neck supple. No JVD or thyromegaly LUNGS: Respirations even and unlabored. Lungs essentially clear to auscultation bilaterally. HEART: Regular rate and rhythm. S1 and S2 heard. ABDOMEN: Soft. Nondistended. Nontender. EXTREMITIES: Normal range of motion. No clubbing or cyanosis. Peripheral puls es intact. No lower extremity edema NEUROLOGIC: Reports dizziness. Awake and alert. Oriented x 3. ASSESSMENT: Known history of PVCs Multiple sclerosis Dizziness and lightheadedness Vertigo Hypertension Nicotine dependence PLAN: From cardiology perspective, patient stable to be discharged home. Patient may follow up on an outpatient basis. Recommend event monitor post discharge. Patient can follow-up with a pc maintenance technician in [place] will follow-up with his primary care provider at [place] for cardiology referral. Patient is in understanding of the plan. Nurse practitioner note has been reviewed by physician. Signing provider agrees with the documented findings, assessment, and plan of care. Objective - Vital Signs Vital signs: Vital Signs Temp 97.7 F 12/07/20 12:00 Pulse 70 12/07/20 07:40 Resp 17 12/07/20 12:00 BP 137/87 12/07/20 12:00 Pulse Ox 100 07/21/21 12:00 Intake & Output 12/06/20 12/07/20 12/07/20 18:59 06:59 18:59 Intake Total 640 120 Balance 640 120 Weight 112 kg Intake: Oral 640 120 Other: Voiding Method Toilet Toilet Toilet # Voids 2 3 1 - Labs CBC & Chem 7: 12/05/20 12:00 12/06/20 15:43 Labs: Abnormal Lab Results - Last 24 Hours (Table) 12/06/20 Range/Units 15:43 Glucose 108 H (74-99) mg/dL
[2020-12-07 15:00] VITALS: RESP 16
--- NOTE | 2020-12-07 16:06 | MR ---
EXAMINATION TYPE: MR brain w con DATE OF EXAM: 12/07/2020 COMPARISON: MR brain 12/05/2020, CT 12/05/2020 HISTORY: Dizziness TECHNIQUE: Multiplanar, multisequence images of the brain and brainstem is performed without and with IV contras t, utilizing 10 mL intravenous Gadavist . FINDINGS: Diffusion weighted images demonstrate no evidence of a recent infarct or other diffusion ab normality, some T2 shine through is suspected axial image 17. There is no extra-axial fluid collecti on or significant change and white matter signal abnormality. Pericallosal, periventricular, subcorti jovita hyperintensities are present and inversion recovery T2-weighted sequences as on prior exam, large st lesion on axial image #21 adjacent to the posterior horn the right lateral ventricle on the right measures approximately 1 cm transverse dimension, 6 mm in cephalad to caudal dimension, 9 mm in AP di mension, there are approximately 10-15 lesions present. The ventricular system and cisternal spaces a re normal in size and appearance. The brain volume is age appropriate. The hypoattenuation seen with in the betty on CT likely represented artifact. Midline structures demonstrate some hyperintensity on FLAIR images along the level of the corpus call osum. The craniocervical junction appears within normal limits. Post contrast images demonstrate no abnormal enhancement. The dural venous sinuses appear patent. The visualized sinuses are remarkable for mucoperiosteal thickening in the maxillary sinuses, ethmoid air cells and the globes are intact. IMPRESSION: Findings consistent with multiple sclerosis. No evident subacute posterior circulation in farct.
[2020-12-07 17:57] VITALS: BP 168/90; TEMP 97.6
== END 2020-12-07 18:49 | disposition home or self-care (01) ==
LOC: EC 11:49 → 3SCARD 14:45
PROVIDERS: ADMIT Family Medicine; ATTEND Family Medicine
DX: R42 Dizziness and giddiness (principal); G35 Multiple sclerosis; I49.3 Ventricular premature depolarization; I10 Essential (primary) hypertension; I08.1 Rheumatic disorders of both mitral and tricuspid valves; F17.210 Nicotine dependence, cigarettes, uncomplicated; E66.9 Obesity, unspecified; Z68.33 Body mass index [BMI] 33.0-33.9, adult; Z79.899 Other long term (current) drug therapy; Z88.1 Allergy status to other antibiotic agents; Z90.49 Acquired absence of other specified parts of digestive tract; Z98.818 Other dental procedure status; Z82.49 Family history of ischemic heart disease and other diseases of the circulatory system; Z83.3 Family history of diabetes mellitus; Z80.8 Family history of malignant neoplasm of other organs or systems; Z80.51 Family history of malignant neoplasm of kidney; Z91.14 Patient's other noncompliance with medication regimen
CPT/HCPCS: 96376 ×3; 96361; 96374; 96375; 99285; 36415; 93005; 93306; 97161; 97530; 97166; 80053; 80048; 83735 ×2; 84484; 85025; 71046; 70496; 70450; 70498; 70551; 70552; G0378 ×3; J3360 ×3; A9585; Q9967